=== PATIENT | female | born 1985 | race Hispanic/Latino ===

== ENCOUNTER 2024-01-05 21:33 | Emergency (ER) | payer OTHER, BC ==
[~2024-01-05] VITALS: Ht 165.1 cm; Wt 89.4 kg
[2024-01-05] MEDS: acetaMINOPHEN 500 MG TABLET PO ONE (22:14)
[2024-01-06 00:11] VITALS: BP 121/85; PULSE 88; RESP 18; O2SAT 99
== END 2024-01-06 00:43 | disposition home or self-care (01) ==
LOC: EDH 21:33
DX: S40.011A Contusion of right shoulder, initial encounter (principal); R42 Dizziness and giddiness; Z88.5 Allergy status to narcotic agent; Z90.89 Acquired absence of other organs; Z98.51 Tubal ligation status; Z98.890 Other specified postprocedural states; V49.9XXA Car occupant (driver) (passenger) injured in unspecified traffic accident, initial encounter; Y93.89 Activity, other specified; Y92.410 Unspecified street and highway as the place of occurrence of the external cause; Y99.8 Other external cause status
CPT/HCPCS: 70450; 73030; 81025; 93005

== ENCOUNTER → 2024-03-26 | Outpatient (CLI) | payer BC ==
--- NOTE | 2024-03-27 09:26 | HMCIMG ---
PROCEDURE: MAMMO DX BILATERAL, US BREAST BILATERAL HISTORY: Breast pain COMPARISON: 03/16/2021 TECHNIQUE: Bilateral digital diagnostic mammogram with CAD was performed. Coned compression views of right breast were obtained. Bilateral breast ultrasound study was performed. Markers were placed in the region of interest in the left breast. FINDINGS: The breasts are heterogeneously dense, which may obscure small masses. Coned compression view show no evidence of mass lesion. Ultrasound shows no evidence of cystic or hypoechoic mass in both breasts. Normal-appearing bilateral axillary lymph nodes are seen with right measuring 16 x 8 x 13 mm and left measuring 2.4 x 1.1 cm. Left axillary lymph nodes has benign appearance and enlarged most likely related to palpable area. This appears be partially present on previous study. There is no evidence of a dominant mass, or suspicious microcalcification. There is no evidence of nipple retraction or skin thickening. IMPRESSION: 1. Stable mammogram. Benign-appearing axillary lymph nodes. Largest one is seen in the left axillary region at the region of interest. BI-RADS: CATEGORY 2: BENIGN FINDINGS Recommend monthly self breast exam as well as annual clinical examination. A negative x-ray should not delay biopsy if a dominant or clinically suspicious mass is present, since 8-10% of cancers are not identified by mammography. Dense breasts particularly, may obscure an underlying neoplasm. Some of these may be detected clinically and therefore, clinical examination is an essential part of breast evaluation.
== END | disposition home or self-care (01) ==
LOC: RAH 13:07
PROVIDERS: ATTEND Internal Medicine
DX: N63.20 Unspecified lump in the left breast, unspecified quadrant (principal); N64.4 Mastodynia; R92.30 Dense breasts, unspecified
CPT/HCPCS: 77066

== ENCOUNTER → 2025-04-09 | Outpatient (CLI) | payer BC | END | disposition home or self-care (01) | LOC: RAH 15:31 | PROVIDERS: ATTEND Obstetrics & Gynecology | DX: Z12.31 Encounter for screening mammogram for malignant neoplasm of breast (principal) | CPT/HCPCS: 77067 ==

== ENCOUNTER → 2025-04-14 | Outpatient (CLI) | payer BC ==
--- NOTE | 2025-04-14 14:25 | HMCIMG ---
Exam: Ultrasound deep veins left upper extremity. History: Left arm pain Findings: Schmidt scale and color/doppler static images of the deep veins of the left upper extremity were submitted without a comparison exam. There is normal response to compression and augmentation maneuvers throughout the visualized deep veins of the left upper extremity to include the: Axillary, brachial, cephalic, ulna and radial as well as portions of the subclavian and internal jugular veins. Echogenic material and lack of compressibility left basilic vein No fluid collection or other abnormality is delineated. IMPRESSION: 1. Echogenic material and lack of compressibility in the left basilic vein, concerning for deep vein thrombosis. 2. Patent flow in other visualized deep veins of the left upper extremity. /Bernadine
== END | disposition home or self-care (01) ==
LOC: RAH 12:05
PROVIDERS: ATTEND Obstetrics & Gynecology
DX: M79.89 Other specified soft tissue disorders (principal)
CPT/HCPCS: 93971